=== PATIENT | male | born 2000 ===

== ENCOUNTER 2019-04-01 04:13 | Emergency (ER) | payer BC, OTHER ==
[2019-04-01] MEDS ORDERED: NACL 0.9% 1000 ML 1,000 ML IV ONE ×2 (04:18→06:02)
--- NOTE | 2019-04-01 04:25 | Emergency Department Report ---
ED Altered Mental Status HPI - General Stated Complaint: UNRESPONSIVE Time Seen by Provider: 04/01/19 04:17 - History of Present Illness Initial Comments: 18-year-old male presents to the ED via EMS for altered mental status. A passerby called 911 after noticing patient had been sitting in his car for 30 minutes and appeared unresponsive. Upon EMS arrival, patient minimally responsive. Patient nonverbal but reacts to painful stimuli. Vital signs n ormal with EMS. Pupils dilated so no Narcan given. Accu-Chek in the 110s. Unable to obtain any additional history from the patient. MD Complaint: altered mental status -: This morning Severity: severe Consistency of Symptoms: unknown - Related Data Allergies Allergy/AdvReac Type Severity Reaction Status Date / Time Unable to Assess Allergy Unverified 04/01/19 04:56 ED Review of Systems ROS: Stated complaint: UNRESPONSIVE Other details as noted in HPI Comment: Unobtainable due to pts medical conditions ED Physical Exam - General General appearance: obtunded, other (smells of alcohol) - Head Head exam: Present: atraumatic, normocephalic - Eye Eye exam: Present: normal appearance Pupils: Present: other (pupils dilated bilaterally) - ENT ENT exam: Present: mucous membranes moist - Neck Neck exam: Present: normal inspection - Respiratory Respiratory exam: Present: normal lung sounds bilaterally. Absent: respiratory distress - Cardiovascular Cardiovascular Exam: Present: normal rhythm, bradycardia - GI/Abdominal GI/Abdominal exam: Present: soft. Absent: distended - Extremities Exam Extremities exam: Present: normal inspection - Neurological Exam Neurological exam: Present: other (nonverbal, somewhat opens eyes, not following commands, localizes pain) - Skin Skin exam: Present: warm, dry, intact, normal color ED Course Vital Signs 04/01/19 04/01/19 04/01/19 04:16 04:30 04:48 Temperature 95.4 F L Pulse Rate 57 L 40 L 50 L Respiratory 10 L 15 11 L Rate Blood Pressure 108/60 100/60 100/60 Blood Pressure 100/60 [Left] O2 Sat by Pulse 99 100 98 Oximetry 04/01/19 04/01/19 04/01/19 05:00 05:15 05:30 Temperature Pulse Rate 51 L 45 L 48 L Respiratory 15 14 16 Rate Blood Pressure 105/44 104/59 92/41 Blood Pressure [Left] O2 Sat by Pulse 96 100 100 Oximetry 04/01/19 04/01/19 04/01/19 05:45 06:01 06:15 Temperature Pulse Rate 48 L 45 L 61 Respiratory 16 13 17 Rate Blood Pressure 89/33 102/40 99/38 Blood Pressure [Left] O2 Sat by Pulse 100 99 98 Oximetry 04/01/19 04/01/19 04/01/19 06:30 06:46 07:01 Temperature Pulse Rate 66 67 Respiratory 17 19 Rate Blood Pressure 96/34 98/38 98/73 Blood Pressure [Left] O2 Sat by Pulse 97 96 99 Oximetry 04/01/19 04/01/19 04/01/19 07:15 07:31 07:45 Temperature Pulse Rate 46 L 45 L Respiratory 15 16 Rate Blood Pressure 86/34 88/34 91/36 Blood Pressure [Left] O2 Sat by Pulse 98 100 98 Oximetry 04/01/19 04/01/19 04/01/19 08:01 08:21 08:30 Temperature Pulse Rate 54 L 47 L Respiratory 19 16 16 Rate Blood Pressure 89/34 93/36 Blood Pressure [Left] O2 Sat by Pulse 97 100 100 Oximetry 04/01/19 04/01/19 04/01/19 09:01 09:30 10:01 Temperature Pulse Rate 47 L 47 L 46 L Respiratory 15 15 14 Rate Blood Pressure 84/29 89/29 92/41 Blood Pressure [Left] O2 Sat by Pulse 100 98 100 Oximetry 04/01/19 04/01/19 04/01/19 10:30 11:01 11:31 Temperature Pulse Rate 46 L 42 L Respiratory 16 14 Rate Blood Pressure 99/33 94/37 94/37 Blood Pressure [Left] O2 Sat by Pulse 100 100 Oximetry - Lab Data Result diagrams: 04/01/19 04:53 04/01/19 04:53 Lab Results 04/01/19 04/01/19 04/01/19 Range/Units 04:45 04:53 04:53 WBC 7.9 (4.5-11.0) K/mm3 RBC 4.37 (3.65-5.03) M/mm3 Hgb 13.3 (11.8-15.2) gm/dl Hct 39.0 (35.5-45.6) % MCV 89 (84-94) fl MCH 30 (28-32) pg MCHC 34 (32-34) % RDW 13.3 (13.2-15.2) % Plt Count 185 (140-440) K/mm3 Lymph % (Auto) 25.0 (13.4-35.0) % Emery % (Auto) 6.7 (0.0-7.3) % Eos % (Auto) 1.9 (0.0-4.3) % Baso % (Auto) 0.6 (0.0-1.8) % Lymph # 2.0 (1.2-5.4) K/mm3 Emery # 0.5 (0.0-0.8) K/mm3 Eos # 0.2 (0.0-0.4) K/mm3 Baso # 0.0 (0.0-0.1) K/mm3 Seg Neutrophils % 65.8 (40.0-70.0) % Seg Neutrophils # 5.2 (1.8-7.7) K/mm3 PT (12.2-14.9) Sec. INR (0.87-1.13) APTT (24.2-36.6) Sec. Sodium 141 (137-145) mmol/L Potassium 3.7 (3.6-5.0) mmol/L Chloride 104.6 (98-107) mmol/L Carbon Dioxide 22 (22-30) mmol/L Anion Gap 18 mmol/L BUN 17 (9-20) mg/dL Creatinine 1.0 (0.8-1.5) mg/dL Estimated GFR > 60 ml/min BUN/Creatinine Ratio 17 % Glucose 104 H (75-100) mg/dL Lactic Acid (0.7-2.0) mmol/L Calcium 8.0 L (8.4-10.2) mg/dL Magnesium (1.7-2.3) mg/dL Total Bilirubin 0.20 (0.1-1.2) mg/dL Direct Bilirubin (0-0.2) mg/dL Indirect Bilirubin mg/dL AST 16 (5-40) units/L ALT 13 (7-56) units/L Alkaline Phosphatase 71 (35-129) units/L Total Creatine Kinase (55-170) units/L CK-MB (CK-2) (0.0-4.0) ng/mL CK-MB (CK-2) Rel Index (0-4) Troponin T (0.00-0.029) ng/mL NT-Pro-B Natriuret Pep (0-450) pg/mL Total Protein 6.5 (6.3-8.2) g/dL Albumin 4.1 (3.9-5) g/dL Albumin/Globulin Ratio 1.7 % Salicylates (2.8-20.0) mg/dL Urine Opiates Screen Presumptive negative Urine Methadone Screen Presumptive negative Acetaminophen (10.0-30.0) ug/mL Ur Barbiturates Screen Presumptive negative Ur Phencyclidine Scrn Presumptive negative Ur Amphetamines Screen Presumptive negative U Benzodiazepines Scrn Presumptive negative Urine Cocaine Screen Presumptive negative U Marijuana (THC) Screen Presumptive negative Drugs of Abuse Note Disclamer Plasma/Serum Alcohol (0-0.07) % 04/01/19 04/01/19 04/01/19 Range/Units 04:53 04:53 04:53 WBC (4.5-11.0) K/mm3 RBC (3.65-5.03) M/mm3 Hgb (11.8-15.2) gm/dl Hct (35.5-45.6) % MCV (84-94) fl MCH (28-32) pg MCHC (32-34) % RDW (13.2-15.2) % Plt Count (140-440) K/mm3 Lymph % (Auto) (13.4-35.0) % Emery % (Auto) (0.0-7.3) % Eos % (Auto) (0.0-4.3) % Baso % (Auto) (0.0-1.8) % Lymph # (1.2-5.4) K/mm3 Emery # (0.0-0.8) K/mm3 Eos # (0.0-0.4) K/mm3 Baso # (0.0-0.1) K/mm3 Seg Neutrophils % (40.0-70.0) % Seg Neutrophils # (1.8-7.7) K/mm3 PT (12.2-14.9) Sec. INR (0.87-1.13) APTT (24.2-36.6) Sec. Sodium (137-145) mmol/L Potassium (3.6-5.0) mmol/L Chloride (98-107) mmol/L Carbon Dioxide (22-30) mmol/L Anion Gap mmol/L BUN (9-20) mg/dL Creatinine (0.8-1.5) mg/dL Estimated GFR ml/min BUN/Creatinine Ratio % Glucose (75-100) mg/dL Lactic Acid (0.7-2.0) mmol/L Calcium (8.4-10.2) mg/dL Magnesium (1.7-2.3) mg/dL Total Bilirubin (0.1-1.2) mg/dL Direct Bilirubin (0-0.2) mg/dL Indirect Bilirubin mg/dL AST (5-40) units/L ALT (7-56) units/L Alkaline Phosphatase (35-129) units/L Total Creatine Kinase (55-170) units/L CK-MB (CK-2) (0.0-4.0) ng/mL CK-MB (CK-2) Rel Index (0-4) Troponin T (0.00-0.029) ng/mL NT-Pro-B Natriuret Pep (0-450) pg/mL Total Protein (6.3-8.2) g/dL Albumin (3.9-5) g/dL Albumin/Globulin Ratio % Salicylates < 0.3 L (2.8-20.0) mg/dL Urine Opiates Screen Urine Methadone Screen Acetaminophen < 5.0 L (10.0-30.0) ug/mL Ur Barbiturates Screen Ur Phencyclidine Scrn Ur Amphetamines Screen U Benzodiazepines Scrn Urine Cocaine Screen U Marijuana (THC) Screen Drugs of Abuse Note Plasma/Serum Alcohol 0.22 H (0-0.07) % 04/01/19 04/01/19 04/01/19 Range/Units 08:08 08:08 08:08 WBC (4.5-11.0) K/mm3 RBC (3.65-5.03) M/mm3 Hgb (11.8-15.2) gm/dl Hct (35.5-45.6) % MCV (84-94) fl MCH (28-32) pg MCHC (32-34) % RDW (13.2-15.2) % Plt Count (140-440) K/mm3 Lymph % (Auto) (13.4-35.0) % Emery % (Auto) (0.0-7.3) % Eos % (Auto) (0.0-4.3) % Baso % (Auto) (0.0-1.8) % Lymph # (1.2-5.4) K/mm3 Emery # (0.0-0.8) K/mm3 Eos # (0.0-0.4) K/mm3 Baso # (0.0-0.1) K/mm3 Seg Neutrophils % (40.0-70.0) % Seg Neutrophils # (1.8-7.7) K/mm3 PT 15.3 H (12.2-14.9) Sec. INR 1.14 H (0.87-1.13) APTT 28.9 (24.2-36.6) Sec. Sodium (137-145) mmol/L Potassium (3.6-5.0) mmol/L Chloride (98-107) mmol/L Carbon Dioxide (22-30) mmol/L Anion Gap mmol/L BUN (9-20) mg/dL Creatinine (0.8-1.5) mg/dL Estimated GFR ml/min BUN/Creatinine Ratio % Glucose (75-100) mg/dL Lactic Acid 1.20 (0.7-2.0) mmol/L Calcium (8.4-10.2) mg/dL Magnesium 2.00 (1.7-2.3) mg/dL Total Bilirubin 0.20 (0.1-1.2) mg/dL Direct Bilirubin < 0.2 (0-0.2) mg/dL Indirect Bilirubin 0.0 mg/dL AST 14 (5-40) units/L ALT 12 (7-56) units/L Alkaline Phosphatase 66 (35-129) units/L Total Creatine Kinase 225 H (55-170) units/L CK-MB (CK-2) 2.8 (0.0-4.0) ng/mL CK-MB (CK-2) Rel Index 1.2 (0-4) Troponin T < 0.010 (0.00-0.029) ng/mL NT-Pro-B Natriuret Pep 25.50 (0-450) pg/mL Total Protein 6.0 L (6.3-8.2) g/dL Albumin 3.8 L (3.9-5) g/dL Albumin/Globulin Ratio 1.7 % Salicylates (2.8-20.0) mg/dL Urine Opiates Screen Urine Methadone Screen Acetaminophen (10.0-30.0) ug/mL Ur Barbiturates Screen Ur Phencyclidine Scrn Ur Amphetamines Screen U Benzodiazepines Scrn Urine Cocaine Screen U Marijuana (THC) Screen Drugs of Abuse Note Plasma/Serum Alcohol (0-0.07) % 04/01/19 Range/Units 08:08 WBC (4.5-11.0) K/mm3 RBC (3.65-5.03) M/mm3 Hgb (11.8-15.2) gm/dl Hct (35.5-45.6) % MCV (84-94) fl MCH (28-32) pg MCHC (32-34) % RDW (13.2-15.2) % Plt Count (140-440) K/mm3 Lymph % (Auto) (13.4-35.0) % Emery % (Auto) (0.0-7.3) % Eos % (Auto) (0.0-4.3) % Baso % (Auto) (0.0-1.8) % Lymph # (1.2-5.4) K/mm3 Emery # (0.0-0.8) K/mm3 Eos # (0.0-0.4) K/mm3 Baso # (0.0-0.1) K/mm3 Seg Neutrophils % (40.0-70.0) % Seg Neutrophils # (1.8-7.7) K/mm3 PT (12.2-14.9) Sec. INR (0.87-1.13) APTT (24.2-36.6) Sec. Sodium (137-145) mmol/L Potassium (3.6-5.0) mmol/L Chloride (98-107) mmol/L Carbon Dioxide (22-30) mmol/L Anion Gap mmol/L BUN (9-20) mg/dL Creatinine (0.8-1.5) mg/dL Estimated GFR ml/min BUN/Creatinine Ratio % Glucose (75-100) mg/dL Lactic Acid (0.7-2.0) mmol/L Calcium (8.4-10.2) mg/dL Magnesium (1.7-2.3) mg/dL Total Bilirubin (0.1-1.2) mg/dL Direct Bilirubin (0-0.2) mg/dL Indirect Bilirubin mg/dL AST (5-40) units/L ALT (7-56) units/L Alkaline Phosphatase (35-129) units/L Total Creatine Kinase (55-170) units/L CK-MB (CK-2) (0.0-4.0) ng/mL CK-MB (CK-2) Rel Index (0-4) Troponin T (0.00-0.029) ng/mL NT-Pro-B Natriuret Pep (0-450) pg/mL Total Protein (6.3-8.2) g/dL Albumin (3.9-5) g/dL Albumin/Globulin Ratio % Salicylates (2.8-20.0) mg/dL Urine Opiates Screen Urine Methadone Screen Acetaminophen (10.0-30.0) ug/mL Ur Barbiturates Screen Ur Phencyclidine Scrn Ur Amphetamines Screen U Benzodiazepines Scrn Urine Cocaine Screen U Marijuana (THC) Screen Drugs of Abuse Note Plasma/Serum Alcohol 0.17 H (0-0.07) % - EKG Data -: EKG Interpreted by Oh EKG shows normal: sinus rhythm, axis, intervals, QRS complexes, ST-T waves Rate: bradycardia (rate 46) Interpretation: no acute changes - Radiology Data Radiology results: image reviewed - Medical Decision Making Pt intoxicated. ETOH 220. Remains obtunded, but responds well to stimuli. Remains nonverbal. CT Head negative, labs unremarkable. Pt will require furt her observation in the ED until sober. Will sign pt out to oncoming attending for re-evaluation. - Differential Diagnosis ETOH intox, drug abuse, head injury Critical care attestation.: If time is entered above; I have spent that time in minutes in the direct care of this critically ill patient, excluding procedure time. ED Disposition Clinical Impression: Volume depletion Alcohol intoxication Qualifiers: Complication of substance-induced condition: with unspecified complication Qualified Code(s): F10.929 - Alcohol use, unspecified with intoxication, unspecified Disposition: DC-01 TO HOME OR SELFCARE Is pt being admited?: No Condition: Stable Instructions: Alcohol Intoxication (ED) Referrals: JANAE ANDREA MD [Primary Care Provider] - 3-5 Days
[2019-04-01 05:20] LABS: Amphetamine Screen,Urine PRESUMPTIVE NEGATIVE; Benzodiazepines Screen,Urine PRESUMPTIVE NEGATIVE; Cannabinoid Screen,Urine PRESUMPTIVE NEGATIVE; Cocaine Screen,Urine PRESUMPTIVE NEGATIVE; Methadone Screen,Urine PRESUMPTIVE NEGATIVE; Opiate Screen,Urine PRESUMPTIVE NEGATIVE
[2019-04-01 05:28] LABS: Alanine Aminotransferase 13 units/L (7-56); Albumin 4.1 g/dL (3.9-5); BUN/Creatinine Ratio 17; Blood Urea Nitrogen 17 mg/dL (9-20); Hemolysis Index 13
--- NOTE | 2019-04-01 05:38 | Cat Scan Report ---
PROCEDURE: CT HEAD/BRAIN WO CON TECHNIQUE: Computerized tomography of the head was performed without contrast material. CT DOSE LENGTH PRODUCT: mGycm HISTORY: ams COMPARISONS: None . FINDINGS: Skull and scalp: Normal . Paranasal sinuses: Normal . Ventricles and subarachnoid spaces: Normal . Cerebrum: No evidence of hemorrhage, acute infarction or mass . Cerebellum and brainstem: No evidence of hemorrhage, acute infarction or mass . Vasculature: Normal . IMPRESSION: Normal Examination . This document is electronically signed by Huang Lazar MD., Apr 01 2019 05:37:17 AM ET
[2019-04-01 05:41] LABS: Basophils % (Auto) 0.6 % (0.0-1.8); Eosinophils # (Auto) 0.2 K/mm3 (0.0-0.4); Eosinophils % (Auto) 1.9 % (0.0-4.3); Hemoglobin 13.3 gm/dl (11.8-15.2); Mean Corpuscular HGB Conc 34 % (32-34); Mean Corpuscular Volume 89 fl (84-94); Monocytes # (Auto) 0.5 K/mm3 (0.0-0.8); Monocytes % (Auto) 6.7 % (0.0-7.3); Platelet Count 185 K/mm3 (140-440); Red Blood Count 4.37 M/mm3 (3.65-5.03); Red Cell Distribution Width 13.3 % (13.2-15.2)
[2019-04-01] MEDS ORDERED: LACTATED RINGERS 1,000 ML IV ONE (07:59)
[2019-04-01] MEDS ORDERED: LACTATED RINGERS 1,000 ML ONE (08:03)
[2019-04-01 08:33] LABS: INR 1.14 (0.87-1.13)
[2019-04-01 08:34] LABS: Partial Thromboplastin Time 28.9 Sec. (24.2-36.6)
[2019-04-01 08:41] LABS: Creatine Kinase MB 2.8 ng/mL (0.0-4.0)
[2019-04-01 08:43] LABS: Alanine Aminotransferase 12 units/L (7-56); Albumin 3.8 g/dL (3.9-5)
[2019-04-01 08:45] LABS: Bilirubin,Direct < 0.2 mg/dL (0-0.2)
--- NOTE | 2019-04-01 11:41 | Emergency Department Report ---
Gia Doc - Documentation Documentation: This patient was signed out to me by Dr. Abel. Nurses advised me that his blood pressure was on the low side. He was given another liter of lactated Ringer's. As a precaution I checked additional laboratory tests which were remarkably normal to include a lactic acid. On my encounter with the patient he was standing up beside his gurney. He told me in Marshallese that he was ready to go and was essentially asymptomatic. I discussed his alcohol level with him which was substantially elevated. He continued to tell me that he only had 2 beers. However, he was completely awake alert and oriented. I did repeat his blood pressure and found it to be 142/70. His appearance was certainly well perfused. His mental status was normal. Impression alcohol intoxication Volume depletion Plan Patient was advised against alcohol excess. He was also reminded not to drink and drive. He is appropriate for outpatient follow-up and will be discharged. He is asymptomatic. He is awake alert and fully ambulatory.
[2019-04-01 12:22] VITALS: BP 94/37
== END 2019-04-01 11:58 | disposition home or self-care (01) ==
LOC: ED 04:13
DX: E86.9 Volume depletion, unspecified (principal); F10.929 Alcohol use, unspecified with intoxication, unspecified
CPT/HCPCS: 36415; 70450; 80053; 80076; 80307; 82140; 82550; 82553; 83735; 83880; 84484; 85025; 85610; 85730; 93005; 93010; 96360; 96361; 99284; G0480; J7030; J7120; 80320